=== PATIENT | female | born 1960 | race Caucasian/White ===

== ENCOUNTER → 2016-06-25 | Outpatient (CLI) | payer OTHER ==
[~2016-06-25] MED LIST: ATIVAN 1MG T1 MG/TAB PO; CELEBREX 200MG200 MG PO; CELEBREX200 MG PO; CELEXA40 MG PO; COZAAR 50MG50 MG/TAB PO; COZAAR50 MG PO; DESYREL 50MG50 MG PO; DEXILANT PO; ESTRACE0.1 MG/GM PO; KAPIDEX60 MG PO; LAMICTAL 25MG T25 MG PO; LANTUS SOLOS100 U/ML SC; LANTUS100 U/ML SC; LASIX 40MG TABL40 MG PO; LASIX20 MG PO; LISINOPRIL10 MG PO; LORAZEPAM1 MG PO; NEXIUM 40MG40 MG PO; NOVLOG SC; NOVOLOG FLEX100 U/ML SC; REGLAN 10MG10 MG/TAB PO; RT ADVAIR 228 DISKUS IH; TYLENOL 500MG500 MG PO; TYLENOL PM EXTR1 TA1 PO; VESICARE 5MG5 MG PO; WELLBUTRIN XL150 MG PO; ZOCOR 40MG40 MG PO; ZOCOR40 MG PO; ZOLPIDEM10 MG PO
== END ==
LOC: BHSO 13:17
DX: F31.81 Bipolar II disorder (principal)

== ENCOUNTER → 2016-10-19 | Outpatient (CLI) | payer OTHER | LOC: MC.RAD 14:17 | DX: Z12.31 Encounter for screening mammogram for malignant neoplasm of breast (principal) ==

== ENCOUNTER → 2016-12-24 | Outpatient (CLI) | payer OTHER | LOC: BHSO 10:44 | DX: F31.81 Bipolar II disorder (principal) ==

== ENCOUNTER → 2017-08-07 | Outpatient (CLI) | payer OTHER | LOC: BHSO 11:43 | DX: F31.81 Bipolar II disorder (principal) | CPT/HCPCS: G0463 ==

== ENCOUNTER → 2018-02-04 | Outpatient (CLI) | payer OTHER | LOC: BHSO 11:41 | DX: F31.81 Bipolar II disorder (principal) | CPT/HCPCS: G0463 ==

== ENCOUNTER → 2018-11-20 | Outpatient (CLI) | payer OTHER | LOC: BHSO 09:29 | DX: F31.81 Bipolar II disorder (principal) | CPT/HCPCS: G0463 ==

== ENCOUNTER → 2019-05-20 | Outpatient (CLI) | payer OTHER | LOC: BHSO 14:14 | DX: F31.81 Bipolar II disorder (principal) | CPT/HCPCS: G0463 ==

== ENCOUNTER → 2019-11-17 | Outpatient (CLI) | payer OTHER | LOC: BHSO 10:41 | DX: F41.1 Generalized anxiety disorder (principal) | CPT/HCPCS: G0463 ==

== ENCOUNTER → 2020-01-13 | Outpatient (CLI) | payer OTHER | LOC: MC.RAD 13:45 | DX: Z12.31 Encounter for screening mammogram for malignant neoplasm of breast (principal) ==

== ENCOUNTER 2021-01-13 06:16 | Day surgery (SDC) | payer OTHER ==
[~2021-01-13] VITALS: Ht 152.4 cm; Wt 72.9 kg
[2021-01-13] MEDS ORDERED: NORVASC 5MG5 MG/TAB PO (07:03)
[2021-01-13] MEDS ORDERED: ASPIRIN E.C. 8181 MG PO (07:04)
[2021-01-13] MEDS ORDERED: LAMICTAL150 MG PO (07:04)
[2021-01-13] MEDS ORDERED: LAMICTAL 100MG100 MG PO (07:05)
[2021-01-13] MEDS ORDERED: DESYREL DIVIDO150 M1 PO (07:06)
[2021-01-13] MEDS ORDERED: ATIVAN 0.50.5 MG/TAB PO (07:06)
[2021-01-13 07:24] VITALS: BP 141/86; PULSE 74; TEMP 96.7
--- NOTE | 2021-01-13 07:33 | NUR ---
Patient ambulated back to bay #3 without difficulty, using a steady gait. Vitals obtained. Consent signed and medications reviewed. Patient voided in restroom. Height and weight obtained. IV started in RT AC on third attempt. Patient stated being a very difficult stick. NS is infusing without difficulty. Patient was given a warm blanket, has non-slip socks on and call vang is within reach.
[2021-01-13 08:05] VITALS: BP 133/72; PULSE 73
--- NOTE | 2021-01-13 08:05 | NUR ---
Patient returns to bay 3 and transfers from cart to recliner with standby assist. IV fluids infusing. Denies pain or nausea. Given apple juice and muffin to eat and drink.
[2021-01-13 08:20] VITALS: BP 150/84; PULSE 79
--- NOTE | 2021-01-13 08:20 | NUR ---
Tolerates juice and muffin. Continues to deny pain or nausea.
[2021-01-13 08:35] VITALS: BP 154/81; PULSE 76
--- NOTE | 2021-01-13 08:35 | NUR ---
Dr. Starr here an talks with the patient. All questions answered.
--- NOTE | 2021-01-13 08:43 | NUR ---
IV discontinued and site is free of redness. Patient dresses self.
--- NOTE | 2021-01-13 09:00 | NUR ---
Patient dismissed to home driven by friend and taken to the front door per wheelchair and assisted into vehicle.
== END 2021-01-13 09:00 | disposition home or self-care (01) ==
LOC: SDCO 06:16
DX: Z12.11 Encounter for screening for malignant neoplasm of colon (principal); M19.90 Unspecified osteoarthritis, unspecified site; E11.319 Type 2 diabetes mellitus with unspecified diabetic retinopathy without macular edema; K21.9 Gastro-esophageal reflux disease without esophagitis; E78.00 Pure hypercholesterolemia, unspecified; I10 Essential (primary) hypertension; J30.9 Allergic rhinitis, unspecified; I20.9 Angina pectoris, unspecified; E78.5 Hyperlipidemia, unspecified; M79.7 Fibromyalgia; M54.9 Dorsalgia, unspecified; F41.8 Other specified anxiety disorders; F39 Unspecified mood [affective] disorder; Z20.822 Contact with and (suspected) exposure to COVID-19; Z79.899 Other long term (current) drug therapy; Z79.4 Long term (current) use of insulin
CPT/HCPCS: J2704; J7030

== ENCOUNTER 2022-05-09 17:12 | Emergency (ER) | payer OTHER ==
[~2022-05-09] VITALS: Ht 149.9 cm; Wt 72.7 kg
[~2022-05-09 17:12] MED LIST changes: +ASPIRIN E.C. 8181 MG PO; +ATIVAN 0.50.5 MG/TAB PO; +DESYREL DIVIDO150 M1 PO; +LAMICTAL 100MG100 MG PO; +LAMICTAL150 MG PO; +NORVASC 5MG5 MG/TAB PO
[2022-05-09 17:17] VITALS: TEMP 98.3
[2022-05-09 18:37] LABS: COLLECTION METHOD CLEAN CATCH
[2022-05-09 18:42] LABS: BASO # 0.1 K/mm3 (0.0-0.2); BASO % 0.8 % (0.0-2.0); EOS % 0.1 % (0.0-4.0); GRAN # 6.8 K/mm3 (1.4-6.5); HEMATOCRIT 40.8 % (37.0-47.0); HEMOGLOBIN 13.8 g/dl (12.5-16.0); LYMPH # 0.8 K/mm3 (1.2-3.4); LYMPH % 9.3 % (20.0-51.0); MEAN CELL VOLUME 92 fl (80.0-100.0); MEAN CORPUSCULAR HEMOGLOBIN 31 pg (27-31); MEAN CORPUSCULAR HGB CONC 34 g/dl (33.0-37.0); MEAN PLATELET VOLUME 9.3 fl (7.4-10.4); MONO # 0.6 K/mm3 (0.1-0.6); MONO % 7.6 % (1.7-9.3); PLATELET COUNT 282 K/mm3 (130-400); RED BLOOD COUNT 4.43 M/mm3 (4.10-5.30); REDCELL DISTRIBUTION WIDTH-CV 12.3 % (11.5-14.5)
[2022-05-09 18:51] LABS: PH 5.5 (5.0-8.5); URINE APPEARANCE Clear (CLEAR/HAZY); URINE BLOOD Negative (NEGATIVE); URINE COLOR Yellow (YELLOW); URINE GLUCOSE 1+ (NEGATIVE); URINE KETONE Negative (NEGATIVE); URINE NITRATE Negative (NEGATIVE); URINE PROTEIN(semi-quant) 1+ (NEGATIVE); URINE UROBILINOGEN 0.2 E.U/dL (0.2-1.0)
[2022-05-09 18:59] LABS: ALANINE AMINOTRANSFERASE 23 U/L (0-55); ALBUMIN 3.9 gm/dL (3.4-4.8); ALKALINE PHOSPHATASE 107 U/L (40-150); ANION GAP 12 mmol/L (7-16); AST,SGOT 18 U/L (5-34); BILIRUBIN,TOTAL 0.5 mg/dL (0.2-1.2); BLOOD UREA NITROGEN 12 mg/dL (10-20); CALCIUM 9.3 mg/dL (8.4-10.2); CARBON DIOXIDE 23 mmol/L (23-31); CHLORIDE 99 mmol/L (98-107); CREATININE, serum 0.98 mg/dL (0.57-1.11); GLUCOSE 242 mg/dL (70-99); LIPASE 5 U/L (8-78); POTASSIUM 3.8 mmol/L (3.5-4.5); SODIUM 134 mmol/L (136-145); TOTAL PROTEIN 8.2 gm/dL (6.2-8.1)
[2022-05-09 19:10] LABS: ACETONE,SERUM NEGATIVE
[2022-05-09] MEDS ORDERED: ZOFRAN 4MG T4 MG/TAB PO (19:13)
[2022-05-09 19:17] LABS: MUCOUS Present (NOT PRESENT); SQUAMOUS EPITHELIAL 0-2 /hpf (0-10); URINE BACTERIA None Seen /hpf (NONE SEEN); URINE RBC 0-2 /hpf (0-2)
[2022-05-09 19:48] VITALS: BP 130/76; PULSE 76
== END 2022-05-09 19:49 | disposition home or self-care (01) ==
LOC: COL.ER 17:12
PROVIDERS: Nurse Practitioner Primary Care
DX: K52.9 Noninfective gastroenteritis and colitis, unspecified (principal); E11.9 Type 2 diabetes mellitus without complications; Z87.19 Personal history of other diseases of the digestive system; Z90.49 Acquired absence of other specified parts of digestive tract; Z28.310 Unvaccinated for COVID-19
CPT/HCPCS: J2405; J7120

== ENCOUNTER 2023-09-28 11:18 | Emergency (ER) | payer OTHER ==
[~2023-09-28] VITALS: Ht 149.9 cm; Wt 70.5 kg
[~2023-09-28 11:18] MED LIST changes: +ZOFRAN 4MG T4 MG/TAB PO
[2023-09-28 11:26] VITALS: TEMP 98.2
[2023-09-28] MEDS ORDERED: DESYREL DIVIDO150 M1 PO (13:44)
[2023-09-28 13:54] VITALS: BP 158/70; PULSE 88
== END 2023-09-28 13:57 | disposition home or self-care (01) ==
LOC: COL.ER 11:18
DX: F41.9 Anxiety disorder, unspecified (principal); R45.1 Restlessness and agitation; Z76.0 Encounter for issue of repeat prescription